=== PATIENT | male | born 1930 | race Caucasian/White ===

== ENCOUNTER 2016-09-20 07:31 | Emergency (ER) | payer MEDICARE ==
[2016-09-20] MEDS ORDERED: DIPHTHERIA AND TETANUS (ADULT) 0.5 ML SYR IM ONE (07:38)
[2016-09-20 07:40] VITALS: TEMP 97.5; BMI 21.3
[2016-09-20] MEDS ORDERED: LIDOCAINE 1% 5 ML (METHYLPARABEN FREE) INF ONE (07:44)
--- NOTE | 2016-09-20 08:23 | EDPRACDOC ---
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 LAC TO FOREHEAD; DENIES PAIN Pain Severity: Reports: None Injuries/Pain Location: Reports: head Reason for Fall: Reports: unknown Loss of Consciousness: no loss of consciousness Allergies/Adverse Reactions: Allergies cortisone [Cortisone] Allergy (Verified 09/20/16 07:40) Hives* IVP DYE Allergy (Uncoded 09/20/16 07:40) Hives* Home Medications: Ambulatory Orders Epinephrine [Epipen] 0.3 mg IM .PRN PRN 02/14/14 Albuterol Sulfate [Proair Hfa] 2 puff INH Q4-6H PRN 04/20/15 Losartan Potassium 50 mg PO DAILY 04/20/15 Omeprazole 20 mg PO QHS 04/20/15 Risperidone [Risperdal] 0.5 mg PO BID 04/20/15 Simvastatin 40 mg PO HS 04/20/15 Aspirin [Aspirin EC] 0.5 tab PO DAILY 04/21/15 Cholecalciferol (Vitamin D3) [Vitamin D] 2,000 unit PO DAILY 04/21/15 Oxycodone HCl [Roxicodone] 5 mg PO Q4H PRN 04/21/15 ED Past Medical History - History Reviewed Information Unobtainable: Yes Unable to obtain information due to patient condition - Patient Medical History Neurological History: Reports: Dementia Cardiac History: Reports: Hypertension, Hypercholesterolemia Respiratory History: Reports: COPD, Emphysema GI/ History: Reports: Gastroesophageal Reflux Musculoskeletal History: Reports: Arthritis Psychological History: Denies: Depression - Family Medical History Reports: Hypertension (brother), Cardiac Disorders (brother, mother). Denies: Diabetes, Cancer, Stroke - Social Medical History Smoking Status: Heavy tobacco smoker (5 or more cigarettes/day or daily pipe/ cigar) EDM Review of Systems - Review of Systems ROS Unobtainable: Yes Review of systems cannot be obtained due to the patient's medical condition - Physical Exam Constitutional: Alert (Awake), No apparent distress Oriented to: Person Last recorded Vital Signs: Last Vital Signs Temp 97.5 F 09/20/16 07:35 Pulse 69 09/20/16 07:35 Resp 18 09/20/16 07:35 BP 203/101 H 09/20/16 07:35 Pulse Ox 95 09/20/16 07:35 Oxygen Pulse Oxygen Saturation 95 O2 Device Oxygen Flow Rate Fraction of Inspired Oxygen ( FIO2) - HEENT Head: Normal ( normocephalic) Eye Exam: Normal (PERRL, EOMI, Sclera white) Oropharynx: Normal (Pharynx:Moist without exudate,Gums-no swelling) ENT EAC: Normal TMJ: Normal Nose: No Symptoms Reported (septum midline) Neck: Normal (FROM, trachea at midline) - Respiratory/Cardiovascular Respiratory: Normal - CTA (BBS clear to auscultation without adventitious sounds ) Cardiovascular: Normal (RRR without murmur, gallop or rub) - GI Auscultation: Normal (NABS) Palpation: Normal (Soft,No rebound or guarding, non distended) Tenderness: Non tender Wong's Sign: Negative - Musculoskeletal Back: Normal (Non-Tender) Extremities: Normal (Normal tone, Pulses 2+ No cyanosis or edema, FROM) - Integumentary Skin: Normal, Warm, Dry Lymphatics: Normal (no adenopathy) - Neurologic Memory Impaired: Unable to Test Motor Function: Normal (Normal tone, Pulses 2+ No cyanosis or edema, FROM) Cranial Nerve: Normal (CN II-X11 intact sensation, strength 5/5) Cerebellar: Normal Mood Description: Normal Perception: Normal ED Procedures - Suture/Laceration Suture #1 Face Wound Length (cm): 9 Wound's Depth, Shape: linear, contused tissue Wound Explored: clean Betadine Prep?: Yes Anesthesia: 1% Lidocaine Wound Debrided: minimal Wound Undermining: minimal Wound Repaired With: Sutures Suture Size/Type: 5:0 Number of Sutures: 16 Layer Closure?: Yes Deep Layer Suture Size/Type: 4:0 Number Deep Layer Sutures: 2 Sterile Dressing Applied?: Yes - Results 09/20/16 08:17 09/20/16 08:17 - EKG EKG #1 [place]: Normal Rhythm: NSR Block: None Hypertrophy: None ST: Normal - Additional Information PT DID HAVE ENDARTERECTOMY; SEE CT REPORT Decision Time to Discharge: 09:30 - Departure Yes I personally saw and evaluated the patient. Disposition: Home Condition: Good Final Diagnosis: BLUNT TRAUMA SP FALL, 9CM FACIAL LACERATION-INTERMEDIATE Instructions: Laceration (ED) Education/Counseling Given To: Patient, Family Member Education/Counseling Given Regarding: Diagnosis, Treatment, Prognosis Referrals: Lashay Coker MD [Primary Care Provider] - One Week Prescriptions: No Action Epinephrine [Epipen] 0.3 mg IM .PRN PRN PRN Reason: Anaphylaxis Losartan Potassium 50 mg PO DAILY Simvastatin 40 mg PO HS Risperidone [Risperdal] 0.5 mg PO BID Omeprazole 20 mg PO QHS Albuterol Sulfate [Proair Hfa] 2 puff INH Q4-6H PRN PRN Reason: Wheezing Cholecalciferol (Vitamin D3) [Vitamin D] 2,000 unit PO DAILY Aspirin [Aspirin EC] 0.5 tab PO DAILY Oxycodone HCl [Roxicodone] 5 mg PO Q4H PRN PRN Reason: Pain Additional Instructions: SUTURES OUT IN 10 DAYS
[2016-09-20 08:24] LABS: AUTOMATED BASOPHIL 0.9 % (0-2); AUTOMATED EOSINOPHIL 2.3 % (0-5); AUTOMATED LYMPH 19.5 % (17-44); AUTOMATED MONOCYTE 9.5 % (3-10); AUTOMATED NEUTROPHIL 67.8 % (45-76); MPV 8.5 fL (7.4-10.4)
--- NOTE | 2016-09-20 08:36 | DIRPT ---
CLINICAL DATA: Trauma, unwitnessed fall this morning, laceration to LEFT forehead, initial encounter EXAM: CT HEAD WITHOUT CONTRAST CT CERVICAL SPINE WITHOUT CONTRAST TECHNIQUE: Multidetector CT imaging of the head and cervical spine was performed following the standard protocol without intravenous contrast. Multiplanar CT image reconstructions of the cervical spine were also generated. COMPARISON: None FINDINGS: CT HEAD FINDINGS Generalized atrophy. Normal ventricular morphology. No midline shift or mass effect. Small vessel chronic ischemic changes of deep cerebral white matter. Scattered beam hardening artifacts at the skullbase, including at the LEFT subfrontal region. Questionable area of extra-axial blood at the LEFT subfrontal region (image 11) is shown to be slice averaging artifact on thin section reconstructions through this site. No definite intracranial hemorrhage, mass lesion or evidence of acute infarction. Atherosclerotic calcifications at the internal carotid and vertebral arteries at skullbase. Visualized paranasal sinuses and mastoid air cells clear. Small LEFT frontal scalp hematoma and laceration. No calvarial fractures identified. CT CERVICAL SPINE FINDINGS Scattered atherosclerotic calcifications. 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 Prevertebral soft tissues normal thickness. Multilevel facet degenerative changes bilaterally. Disc space narrowing with endplate spur formation throughout the cervical spine. Minimal anterolisthesis at C3-C4, approximately 2 mm. Minimal retrolisthesis at C4-C5 and C5-C6. Vertebral body heights maintained without fracture or additional subluxation. Emphysematous changes and minimal scarring at lung apices. IMPRESSION: Atrophy with small vessel chronic ischemic changes of deep cerebral white matter. No acute intracranial abnormalities. Multilevel degenerative disc and facet disease changes of the cervical spine as above. No acute cervical spine abnormalities. Dilatation of the LEFT carotid bulb question aneurysm versus prior carotid endarterectomy. Electronically Signed By: Jarrett Phillips M.D. On: 09/20/2016 08:34
[2016-09-20 08:52] LABS: BLOOD UREA NITROGEN 27 MG/DL (9-20); CALC CORRECTED 9.7 MG/DL (8.4-10.2); CALCIUM 9.5 MG/DL (8.4-10.2); CALCULATED OSMOLALITY 273 MOs/Kg (270-290); CHLORIDE 104 mEq/L (98-107); GLUCOSE 99 mg/dL (70-99); SODIUM LEVEL 139 mEq/L (137-146); TOTAL PROTEIN 6.9 G/DL (6.3-8.2)
[2016-09-20 09:43] VITALS: BP 168/73; PULSE 58
== END 2016-09-20 09:41 | disposition home or self-care (01) ==
LOC: ED 07:31
DX: S01.81XA Laceration without foreign body of other part of head, initial encounter (principal); W19.XXXA Unspecified fall, initial encounter; Z23 Encounter for immunization; F03.90 Unspecified dementia, unspecified severity, without behavioral disturbance, psychotic disturbance, mood disturbance, and anxiety
CPT/HCPCS: 12054; 36415; 70450; 72125; 80053; 84484; 85025; 90471; 90714; 93005; 99283; A9270; J3490